=== PATIENT | female | born 1990 ===

== ENCOUNTER 2017-07-30 03:18 | Emergency (ER) | payer BC ==
[2017-07-30 03:44] VITALS: BP 112/64; PULSE 96; RESP 18; TEMP 97.4; O2SAT 96
[2017-07-30] MEDS ORDERED: Sodium Chloride 0.9% 1,000 ML IV STA (04:06)
[2017-07-30 04:28] LABS: BASO # 0.1 K/uL (0.0-0.2); BASO % 0.8 % (0.0-2.0); EOS % 0.1 % (0.0-4.0); HEMOGLOBIN 13.7 g/dL (12.0-16.0); LYMPH # 1.9 K/uL (1.0-4.3); LYMPH % 14.7 % (20.0-40.0); MEAN CELL VOLUME 88.5 fl (81.0-99.0); MEAN CORPUSCULAR HEMOGLOBIN 29.5 pg (27.0-31.0); MEAN CORPUSCULAR HGB CONC 33.3 g/dL (33.0-37.0); MEAN PLATELET VOLUME 9.3 fl (7.2-11.7); MONO # 0.4 K/uL (0.0-0.8); MONO % 3.5 % (0.0-10.0); NEUT # 10.3 K/uL (1.8-7.0); NEUT % 80.9 % (50.0-75.0); RBC 4.65 Mil/uL (3.80-5.20); RED CELL DISTRIBUTION WIDTH 11.7 % (11.5-14.5); WHITE BLOOD COUNT 12.7 K/uL (4.8-10.8)
[2017-07-30 04:48] LABS: ALB/GLOB RATIO 1.5 (1.0-2.1); ALBUMIN 4.7 g/dL (3.5-5.0); ALT/SGPT 27 U/L (9-52); AST/SGOT 20 U/L (14-36); BLOOD UREA NITROGEN 12 mg/dl (7-17); CALCIUM 9.4 mg/dL (8.4-10.2); GFR AFRICAN-AMERICAN > 60; GFR NON-AFRICAN AMERICAN > 60; LIPASE 58 U/L (23-300)
--- NOTE | 2017-07-30 06:14 | ED PDOC ---
HPI: Psych/Substance Abuse Time Seen by Provider: 07/30/17 04:02 Chief Complaint (Nursing): Alcohol Ingestion Chief Complaint (Provider): alcohol intoxication and vomit ED Caveat: Intoxicated History Per: Patient History/Exam Limitations: intoxication Current Symptoms Are (Timing): Better Additional Complaint(s): Laury Burnett, a 26 year old female was brought into the Emergency Department by EMS complaining of alcohol intoxication and vomiting. Reports she has had multiple episodes of vomiting. Denies abdominal pain, shortness of breath, fever, or cough. PMD: Provider TBD Past Medical History Reviewed: Historical Data, Nursing Documentation, Vital Signs Vital Signs: Last Vital Signs Temp 97.4 F L 07/30/17 03:41 Pulse 96 H 07/30/17 03:41 Resp 18 07/30/17 03:41 BP 112/64 07/30/17 03:41 Pulse Ox 96 07/30/17 03:41 - Medical History PMH: No Chronic Diseases - Surgical History Surgical History: No Surg Hx - Family History Family History: States: Unknown Family Hx - Social History Alcohol: Occasional - Allergies Allergies/Adverse Reactions: Allergies Allergy/AdvReac Type Severity Reaction Status Date / Time No Known Allergies Allergy Verified 07/30/17 03:41 Review of Systems ROS Statement: Except As Marked, All Systems Reviewed And Found Negative Constitutional: Negative for: Fever Respiratory: Negative for: Cough, Shortness of Breath Gastrointestinal: Positive for: Nausea, Vomiting (multiple episodes). Negative for: Abdominal Pain Neurological: Positive for: Other (alcohol intoxication) Physical Exam - Reviewed Nursing Documentation Reviewed: Yes Vital Signs Reviewed: Yes - Physical Exam Appears: Positive for: Uncomfortable Head Exam: Positive for: ATRAUMATIC, NORMAL INSPECTION, NORMOCEPHALIC Skin: Positive for: Normal Color, Warm, Dry Eye Exam: Positive for: Normal appearance, EOMI, PERRL ENT: Positive for: Normal ENT Inspection, Other (mucous membrane) Neck: Positive for: Normal Cardiovascular/Chest: Positive for: Regular Rate, Rhythm. Negative for: Murmur Respiratory: Positive for: Normal Breath Sounds. Negative for: Accessory Muscle Use Gastrointestinal/Abdominal: Positive for: Normal Exam, Bowel Sounds, Soft. Negative for: Tenderness Back: Positive for: Normal Inspection Extremity: Positive for: Normal ROM. Negative for: Deformity Neurologic/Psych: Positive for: Alert, Oriented (x3) - Laboratory Results Result Diagrams: 07/30/17 04:20 07/30/17 04:20 - ECG O2 Sat by Pulse Oximetry: 96 (RA) Pulse Ox Interpretation: Normal Medical Decision Making Medical Decision Making: Time: 4:05 Initial Impression: -- 26 y/o female acute nausea and vomiting Initial Plan: --Alcohol serum --CMP --Lipase --Urine --ED Urine dipstick --CBC --Normal saline 1,000ml IV 1,000mls/hr --Pepcid 20mg --Zofran 4mg --Reevaluation Clinical Impression: --Alcohol intoxication and gastritis Upon provider evaluation patient is medically stable and no clinically significant abnormalities in labs with exception of elevated blood alcohol lever. Counseling was provided and all questions were answered regarding diagnosis and need for follow up with PMD. Scribe Attestation: Documented by Francisco Lebron, acting as a scribe for Rudy Titus MD Provider Scribe Attestation: All medical record entries made by the Scribe were at my direction and personally dictated by me. I have reviewed the chart and agree that the record accurately reflects my personal performance of the history, physical exam, medical decision making, and the department course for this patient. I have also personally directed, reviewed, and agree with the discharge instructions and disposition. Disposition - Clinical Impression Clinical Impression: Alcohol intoxication, Gastritis - Patient ED Disposition Is Patient to be Admitted: No - Disposition Disposition: Routine/Home Disposition Time: 06:36 Condition: STABLE Instructions: Gastritis (ED), Alcohol Intoxication (ED) Forms: [employer] (Serbian)
== END 2017-07-30 06:50 | disposition home or self-care (01) ==
LOC: H.ER 03:18
DX: K29.70 Gastritis, unspecified, without bleeding (principal); F10.129 Alcohol abuse with intoxication, unspecified
CPT/HCPCS: 80053; 82948; 83690; 85025; 96374; 96375; 99281; G0480; J2405; J7040